=== PATIENT | female | born 1960 | race Caucasian/White ===

== ENCOUNTER 2020-07-02 08:08 | Emergency (ER) | payer OTHER, SELFPAY ==
[2020-07-02 08:15] VITALS: BP 158/99; PULSE 99; RESP 16; TEMP 37.1; O2SAT 98
--- NOTE | 2020-07-02 08:36 | ED.GENADULT ---
HPI - General Adult General Chief complaint: Upper Respiratory Infection Stated complaint: sinus pain Time Seen by Provider: 07/02/20 08:29 Source: patient and RN notes reviewed Mode of arrival: ambulatory Limitations: no limitations History of Present Illness HPI narrative: 60-year-old female presents with complaints of upper respiratory infection, some facial congestion, facial pressure, and intermittent headache (not the worst of her life) for the past 4 days. Warm compresses and Afrin nasal spray (used once) without relief. No facial swelling. Old dry cough and intermittent productive cough (clear phlegm). Nasal congestion. No rhinorrhea. No high fevers, drooling, neck or throat swelling. No voice change. Denies dyspnea, difficulty swallowing, jaw pain, dental pain, foreign body sensation, and rash. No chest pain or shortness of breath. The patient reports she have not been diagnosed with COVID-19. The patient reports she is not waiting for the results of a COVID-19 lab test. The patient reports she do not have chills, weakness, or fatigue. The patient reports she do not have a new or worsening cough or shortness of breath. Denies chest pain. The patient reports she do not have any sore throat, loss of taste, nausea, vomiting, abdominal pain, and diarrhea. Tolerating po intake well. Denies recent traveling. 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 At this time, patient is not suspected of having COVID-19 Some parts of this dictation were generated by voice recognition software and may contain typographical and/or grammatical inaccuracies. Related Data Allergies Allergy/AdvReac Type Severity Reaction Status Date / Time No Known Allergies Allergy Verified 07/02/20 08:51 Review of Systems Review of Systems: Narrative: CONSTITUTIONAL: Denies fever, chills, sweats. EYES: Denies visual changes, redness, discharge. ENT: Complains of congestion, facial congestion and pressure. Denies sore throat, rhinorrhea, otalgia. CARDIOVASCULAR: Denies chest pain, palpitations, edema. RESPIRATORY: Denies dyspnea, wheezing. Complains of old dry cough/intermittent productive cough. GASTROINTESTINAL: Denies abdominal pain, nausea, vomiting, diarrhea. SKIN: Denies rash or itching. MUSCULOSKELETAL: Denies acute back pain, joint pain, or myalgia. NEUROLOGIC: Denies numbness, or focal weakness. Complains of intermittent LOUIS. PSYCHIATRIC: Denies anxiety or depression. All other systems reviewed & are unremarkable except as noted in HPI and below. 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 Surgical History Surgical History (Updated 07/02/20 @ 09:21 by JAYLA Cadet) History of hysterectomy 2016 Family History Family History (Updated 07/02/20 @ 09:25 by JAYLA Cadet) Grandparent Family history of cardiovascular disease Mother Family history of malignant neoplasm Liver cancer Sibling Family history of elevated blood lipids Father , related to pneumonia Hypertension Social History Social History (Updated 07/02/20 @ 09:26 by JAYLA Cadet) Years smoked: 15 Smoking status: Current every day smoker Tobacco type: cigarettes Second hand tobacco smoke exposure: No Alcohol intake: former Substance use: never Living arrangements: alone Occupation/Education: unemployed Gender identity (if verbalized by the patient): Female Comments At time of signature, agree with nurse past medical, surgical, social, and family history. There is relevant patient's past medical history pertinent to the presenting complaint, no relevant family h
[2020-07-02 09:08] VITALS: BP 180/100
== END 2020-07-02 09:08 | disposition home or self-care (01) ==
PROVIDERS: Emergency Provider Nurse Practitioner Family; PCP Family Medicine
DX: J01.90 Acute sinusitis, unspecified (principal); F17.210 Nicotine dependence, cigarettes, uncomplicated; Z20.828 Contact with and (suspected) exposure to other viral communicable diseases
CPT/HCPCS: 87081; 87804; 87880; 99213; G0463